=== PATIENT | male | born 1980 | race Caucasian/White ===

== ENCOUNTER 2018-05-10 13:53 | Emergency (ER) | payer BC ==
[~2018-05-10] VITALS: Ht 172.7 cm; Wt 95.3 kg
[2018-05-10 14:00] VITALS: BP_SYST 140
--- NOTE | 2018-05-10 14:15 | NUR ---
Patient to ER bed 06 for evaluation. Side rails up.
--- NOTE | 2018-05-10 14:17 | NUR ---
Pt AAOx4 ambulated into ED c/o 02/11 pain to L wrist s/p sport injury. L wrist was struck with hockey puck prior to arrival. Skin pink dry and warm, breathing even and unlabored. No other injuries/complaints per pt/noted. Will continue to monitor.
--- NOTE | 2018-05-10 14:30 | NUR ---
CHIN Gastelum examining patient.
[2018-05-10 15:27] VITALS: BP_SYST 130
--- NOTE | 2018-05-10 15:27 | NUR ---
Patient given written and verbal discharge instructions and verbalizes understanding. ER MD discussed with patient the results and treatment provided. Patient in stable condition. ID arm band removed. Rx of motrin given. Patient educated on pain management and to follow up with PMD. Pain Scale 3. Opportunity for questions provided and answered. Medication side effect fact sheet provided.
== END 2018-05-10 15:27 | disposition home or self-care (01) ==
LOC: SED 13:53
DX: S60.212A Contusion of left wrist, initial encounter (principal); R03.0 Elevated blood-pressure reading, without diagnosis of hypertension; Z88.1 Allergy status to other antibiotic agents; W22.8XXA Striking against or struck by other objects, initial encounter; Y93.89 Activity, other specified; Y92.89 Other specified places as the place of occurrence of the external cause; Y99.8 Other external cause status
CPT/HCPCS: 99283

== ENCOUNTER 2022-07-24 22:11 | Emergency (ER) | payer BC, OTHER ==
[~2022-07-24] VITALS: Ht 172.7 cm; Wt 94.3 kg
[2022-07-24 22:42] VITALS: BP_SYST 124
--- NOTE | 2022-07-24 22:50 | NUR ---
Patient has been triaged and placed in waiting room, VSS and patient appears in no acute distres at this time. Accompanied by significant other, awaiting available bed, and MD notified of need for MSE.
--- NOTE | 2022-07-24 23:20 | NUR ---
ER IN TRIAGE EXAMINING PATIENT examining patient.
--- NOTE | 2022-07-24 23:24 | NUR ---
Patient to ER bed 03 to gown for evaluation. Side rails up. Report given to ALEXANDER HICKS
[2022-07-24] MEDS ORDERED: KETOROLAC TROMETHAMINE 30 MG VIAL IM ONE (23:45)
[2022-07-25] MEDS ORDERED: IBUP-1969 PO (00:12)
[2022-07-25 00:22] VITALS: BP_SYST 122
--- NOTE | 2022-07-25 00:23 | NUR ---
Patient given written and verbal discharge instructions and verbalizes understanding. ER MD GARZA discussed with patient the results and treatment provided. Patient in stable condition. ID arm band removed. Rx of IBUPROPHEN given. Patient educated on pain management and to follow up with PMD. Pain Scale . Opportunity for questions provided and answered. Medication side effect fact sheet provided.
== END 2022-07-25 00:19 | disposition home or self-care (01) ==
LOC: SED 22:11
DX: S20.212A Contusion of left front wall of thorax, initial encounter (principal); Z88.1 Allergy status to other antibiotic agents; Z79.899 Other long term (current) drug therapy; X58.XXXA Exposure to other specified factors, initial encounter; Y93.22 Activity, ice hockey; Y92.89 Other specified places as the place of occurrence of the external cause; Y99.8 Other external cause status
CPT/HCPCS: 99283; 71100; 96372; J1885